=== PATIENT | male | born 1985 | race Caucasian/White ===

== ENCOUNTER 2024-07-21 02:35 | Emergency (ER) | payer OTHER, BC | END 2024-07-21 04:22 | disposition home or self-care (01) | LOC: VM.ED 02:35 | DX: S06.0X9A Concussion with loss of consciousness of unspecified duration, initial encounter (principal); S01.81XA Laceration without foreign body of other part of head, initial encounter; Z91.040 Latex allergy status; Z88.1 Allergy status to other antibiotic agents; W01.198A Fall on same level from slipping, tripping and stumbling with subsequent striking against other object, initial encounter | CPT/HCPCS: 12011; 70450; 99283; 99284 ==